=== PATIENT | female | born 1975 | race Caucasian/White ===

== ENCOUNTER 2018-03-13 13:09 | Emergency (ER) | payer OTHER ==
[2018-03-13 14:43] VITALS: BP 163/88
--- NOTE | 2018-03-13 15:06 | UC ---
Ear Complaint HPI - HPI Summary HPI Summary: 43 y/o female presents to the urgent care c/o B/L ear fullness and pressure w/ mild pain and discomfort for the past 3 weeks. Pt reports she usually has Hx of cerumen impaction and his ENT usually takes care of that. However she couldn't get an appointment soon and she is flying this coming Wednesday. Pt states mild pain 2/10 w/ associated decrease hearing . Pt denies fever, dizziness, GEIGER, N/V/D , SOB, chest pain, abdominal pain. - History of Current Complaint Chief Complaint: UCEar Stated Complaint: EAR COMPLAINT Time Seen by Provider: 03/13/18 14:50 Hx Obtained From: Patient Hx Last Menstrual Period: 03/04/18 ?: No Onset/Duration: Gradual Onset, Lasting Weeks - 3 weeks, Still Present, Worse Since - yesterday Severity Initially: Mild Severity Currently: Moderate Pain Intensity: 3 Pain Scale Used: 0-10 Numeric Aggravating Factors: Nothing Alleviating Factors: Nothing Associated Signs/Symptoms: Positive: Hearing Loss - Allergies/Home Medications Allergies/Adverse Reactions: Allergies Allergy/AdvReac Type Severity Reaction Status Date / Time No Known Allergies Allergy Verified 03/13/18 14:40 Home Medications: Home Medications Ibuprofen 400 mg PO Q8H 03/13/18 [History Confirmed 03/13/18] PMH/Surg Hx/FS Hx/Imm Hx Previously Healthy: Yes - Pt denies PMHX - Surgical History Surgical History: Yes Surgery Procedure, Year, and Place: MICRODISCECTOMY SURGERY 2000 - Family History Known Family History: Positive: Diabetes - Social History Occupation: Employed Full-time Lives: With Family Alcohol Use: Weekly Substance Use Type: None Smoking Status (MU): Never Smoked Tobacco Review of Systems Constitutional: Negative Skin: Negative Eyes: Negative ENT: Ear Ache - B/L ear preswsure w/ decrease hearing and mild pain Respiratory: Negative Cardiovascular: Negative Gastrointestinal: Negative Genitourinary: Negative Motor: Negative Neurovascular: Negative Musculoskeletal: Negative Neurological: Negative Psychological: Negative Is Patient Immunocompromised?: No All Other Systems Reviewed And Are Negative: Yes Physical Exam - Summary Physical Exam Summary: Vital signs: reviewed General: well developed, well nourished female sitting in the examining table w/ o any apparent distress Skin: [place], warm and dry, no evidence of atopic dermatitis, psoriasis, seborrhea. HEENT: -Head: atraumatic, non tender; no scalp dermatitis. -Eyes: sclera and conjunctiva clear, PERRLA, EOMI -Ears: no pre- or postauricular lymphadenopathy or erythema; B/l external ear canals impacted w/ cerumen unable to visualize TMs. -Nose/Face: erythematous and edematous nasal mucosa with clear rhinorrhea, no frontal or maxillary sinus tender to palpation. -Mouth/Throat: Mucous membrane moist, posterior pharynx clear, no erythema or exudates. Neck: supple, FROM, nontender, no lymphadenopathy, no meningismus. Chest: Clear to auscultation, normal breath sounds Abd: soft, Bowel sounds active, Nontender. Back: no spinal or CVAT Neuro: A&O x4, GCS 15, no focal neuro deficits, normal behavior for age. Triage Information Reviewed: Yes Vital Signs: Initial Vital Signs Temp 98 F 03/13/18 14:38 Pulse 94 03/13/18 14:38 Resp 15 03/13/18 14:38 BP 163/88 03/13/18 14:38 Pulse Ox 100 03/13/18 14:38 Ear Complaint Course/Dx - Course Course Of Treatment: 43 y/o female presents to the urgent care c/o B/L ear fullness and pressure w/ mild pain and discomfort for the past 3 weeks. Pt reports she usually has Hx of cerumen impaction and his ENT usually takes care of that. However she couldn't get an appointment soon and she is flying this coming Wednesday. Pt states mild pain 3/10 w/ associated decrease hearing . Pt denies fever, dizziness, GEIGER, N/V/D, SOB, chest pain, abdominal pain. Hx obtained. Pt w/ B/L cerumen impaction. B/L ear irrigation ordered.Performed by nurse. Pt tolerated well procedure w/o any adverse effect. B/L TM WNL. Advised to continue w/ Ibuprofen PO for alleviate pain. Pt advised if not improvement of symptoms in 2-3 days to return to the clinic or f/u w/ her PCP for further treatment. Pt's BP is elevated today advised to decrease salt in diet, monitor BP and f/u with PCP for further management. Pt understood and agreed w/ plan of care. - Differential Dx/Diagnosis Differential Diagnosis/HQI/PQRI: Barotrauma, Cerumen Impaction, Otitis Externa, Otitis Media, Perforated TM Provider Diagnoses: 1- B/L ear cerumen impaction. 2- Elevated BP w/o Hx of HTN Discharge - Sign-Out/Discharge Documenting (check all that apply): Discharge/Admit/Transfer - D/C home - Discharge Plan Condition: Stable Disposition: HOME Patient Education Materials: Cerumen Impaction (ED), Low-Sodium Diet (ED) Referrals: Jose Angel Pack MD [Primary Care Provider] - Additional Instructions: 1-Take ibuprofen PO q6-8hrs prn after meals for pain. 2-If symptoms do not improve or worsen please f/u with your PCP or return to the urgent care for further evaluation and treatment. 3-Your BP is elevated today. please decrease salt in your diet, monitor BP and if it continues to be elevated please f/u with your PCP for further management - Billing Disposition and Condition Condition: STABLE Disposition: HOME
== END 2018-03-13 15:53 | disposition home or self-care (01) ==
LOC: UCCORT 13:09
DX: H61.23 Impacted cerumen, bilateral (principal); R03.0 Elevated blood-pressure reading, without diagnosis of hypertension
CPT/HCPCS: 99211; G0463

== ENCOUNTER 2019-02-10 08:15 | Emergency (ER) | payer OTHER ==
[2019-02-10 08:33] VITALS: BP 148/85
--- NOTE | 2019-02-10 08:56 | UC ---
Abdominal Pain Female HPI - HPI Summary HPI Summary: pain LLQ x 1 days pain is 8 out of 10 , sudden onset last night as she jumped in the couch no radiation of the pain, worse with movement , better with rest, no n/v/d/c, no urinary sx - History of Current Complaint Chief Complaint: UCAbdominalPain Stated Complaint: LOWER LT PELVIC PAIN Time Seen by Provider: 02/10/19 08:38 Hx Obtained From: Patient Hx Last Menstrual Period: 3 weeks Onset/Duration: Sudden Onset, Lasting Days - 1, Still Present Timing: Constant Severity Initially: Severe Severity Currently: Severe Pain Intensity: 3 Location: Discrete At: LLQ - left groin area Radiates: No Character: Aching Aggravating Factor(s): Movement Alleviating Factor(s): Other: - rest Associated Signs and Symptoms: Negative: Fever, Cough, Chest Pain, Dizzy, Back Pain, Constipation, Blood in Stool, Urinary Symptoms, Decreased Appetite, Vaginal Bleeding, Vaginal Discharge, Nausea, Vomiting, Diarrhea Allergies/Adverse Reactions: Allergies Allergy/AdvReac Type Severity Reaction Status Date / Time No Known Allergies Allergy Verified 02/10/19 08:33 Home Medications: Home Medications Mv-Min/Iron/Folic/Calcium/Vitk [Multivitamin Women] 1 tab PO DAILY 02/10/19 [ History Confirmed 02/10/19] PMH/Surg Hx/FS Hx/Imm Hx Previously Healthy: Yes - Surgical History Surgical History: Yes Surgery Procedure, Year, and Place: MICRODISCECTOMY SURGERY 2000 - Family History Known Family History: Positive: Diabetes - Social History Alcohol Use: Weekly Alcohol Amount: 8 Substance Use Type: None Smoking Status (MU): Never Smoked Tobacco Review of Systems All Other Systems Reviewed And Are Negative: Yes Constitutional: Positive: Negative Skin: Positive: Negative Eyes: Positive: Negative ENT: Positive: Negative Respiratory: Positive: Negative Is Patient Immunocompromised?: No Physical Exam Triage Information Reviewed: Yes Appearance: Well-Appearing, No Pain Distress, Well-Nourished Vital Signs: Initial Vital Signs Temp 97.4 F 02/10/19 08:26 Pulse 91 02/10/19 08:26 Resp 18 02/10/19 08:26 BP 148/85 02/10/19 08:26 Pulse Ox 100 02/10/19 08:26 Vital Signs Reviewed: Yes Eye Exam: Normal Eyes: Positive: Conjunctiva Clear ENT: Positive: Normal ENT inspection, Hearing grossly normal, Pharynx normal Neck: Positive: Supple, Nontender, No Lymphadenopathy Respiratory Exam: Normal Respiratory: Positive: Chest non-tender, Lungs clear, Normal breath sounds Cardiovascular: Positive: RRR, No Murmur, Pulses Normal Abdomen Description: Positive: Soft, Other: - tenderness left groin area , pain is worse with hip flexion and any trunckal movements. Negative: CVA Tenderness (R), CVA Tenderness (L), Distended, Guarding, Hernia @ Skin Exam: Normal Abd Pain Female Course/Dx - Differential Dx/Diagnosis Provider Diagnosis: Inguinal muscle strain Discharge - Sign-Out/Discharge Documenting (check all that apply): Patient Departure All imaging exams completed and their final reports reviewed: No Studies - Discharge Plan Condition: Stable Disposition: HOME Patient Education Materials: Groin Strain (ED) Referrals: Jose Angel Pack MD [Primary Care Provider] - 5 Days Additional Instructions: most likely muscle strain cont. with rest, take Ibuprofen as needed for pain please follow up in 5 to 7 days if not improving , sooner if getting worse - Billing Disposition and Condition Condition: STABLE Disposition: Home
== END 2019-02-10 08:57 | disposition home or self-care (01) ==
LOC: UCCORT 08:15
DX: S39.011A Strain of muscle, fascia and tendon of abdomen, initial encounter (principal); X58.XXXA Exposure to other specified factors, initial encounter; Y92.9 Unspecified place or not applicable
CPT/HCPCS: 81003; 99211; G0463